=== PATIENT | male | born 1950 | race African-American/Black ===

== ENCOUNTER → 2018-08-05 | Outpatient (CLI) | payer BC | END | disposition home or self-care (01) | LOC: LAB 08:51 | PROVIDERS: ATTEND Internal Medicine | DX: N40.0 Benign prostatic hyperplasia without lower urinary tract symptoms (principal); M19.90 Unspecified osteoarthritis, unspecified site | CPT/HCPCS: 73130; 80053; 80061; 81003; 84153; 84154; 84443; 85025; 86200 ==